=== PATIENT | female | born 1975 | race American Indian/Alaskan Native ===

== ENCOUNTER 2017-11-22 00:49 | Emergency (ER) | payer OTHER ==
[2017-11-22] MEDS ORDERED: NACL 0.9% 1000 ML 1,000 ML IV ONE ×3 (00:57→05:18)
[2017-11-22 01:45] LABS: Basophils % (Auto) 0.4 % (0.0-1.8); Eosinophils % (Auto) 0.2 % (0.0-4.3); Hematocrit 39.4 % (30.3-42.9); Hemoglobin 13.2 gm/dl (10.1-14.3); Lymphocytes # (Auto) 1.4 K/mm3 (1.2-5.4); Lymphocytes % (Auto) 13.1 % (13.4-35.0); Mean Corpuscular HGB Conc 33 % (30-34); Mean Corpuscular Volume 77 fl (79-97); Monocytes # (Auto) 0.7 K/mm3 (0.0-0.8); Monocytes % (Auto) 6.4 % (0.0-7.3); Platelet Count 344 K/mm3 (140-440); Red Blood Count 5.11 M/mm3 (3.65-5.03); Red Cell Distribution Width 15.5 % (13.2-15.2)
[2017-11-22 01:54] LABS: Alanine Aminotransferase 8 units/L (7-56); Albumin 4.4 g/dL (3.9-5); BUN/Creatinine Ratio 10; Blood Urea Nitrogen 11 mg/dL (7-17); Calcium 10.9 mg/dL (8.4-10.2); Hemolysis Index 0
[2017-11-22 01:58] LABS: Mean Corpuscular Hemoglobin 26 pg (28-32)
--- NOTE | 2017-11-22 03:42 | Emergency Department Report ---
ED Female HPI - General Chief complaint: Abdominal Pain Stated complaint: ABD PAIN Time Seen by Provider: 11/22/17 03:05 Source: patient, family Mode of arrival: Ambulatory Limitations: No Limitations - History of Present Illness Initial comments: 41-year-old -French female comes in for right side pain that radiate towards the middle. Patient reports that the pain has starting to ease up. She admits to vomiting 2 she had nausea but has resolved. She admits to dysuria and pressure in her bladder area. She also admits to frequency urgency but denies any fever chills. Patient reports no past medical history currently takes no medications on a daily basis and has no known drug allergies. MD Complaint: dysuria, pelvic pain Location: RLQ Radiation: suprapubic Severity scale (0 -10): 10 Quality: other (pressure) Consistency: intermittent Worsens with: urination Are you Now?: No Last Menstrual Period: 11/21/17 EDC: 08/28/18 Associated Symptoms: nausea/vomiting, dysuria. denies: fever/chills - Related Data Sexually active: Yes Previous Rx's Medication Instructions Recorded Last Taken Type Nitrofurantoin Monohyd/M-Cryst 100 mg PO Q12H #20 capsule 11/22/17 Unknown Rx [Macrobid 100 mg Capsule] traMADol [Ultram 50 MG tab] 50 mg PO Q6HR PRN #12 tablet 11/22/17 Unknown Rx Allergies Allergy/AdvReac Type Severity Reaction Status Date / Time No Known Allergies Allergy Unverified 11/22/17 00:52 ED Review of Systems ROS: Stated complaint: ABD PAIN Other details as noted in HPI Constitutional: denies: chills, fever Eyes: denies: eye pain, eye discharge, vision change ENT: denies: ear pain, throat pain Respiratory: denies: cough, shortness of breath, wheezing Cardiovascular: denies: chest pain, palpitations Gastrointestinal: nausea (resolved), vomiting (times 1) Genitourinary: urgency, dysuria, frequency Musculoskeletal: denies: back pain, joint swelling, arthralgia Skin: denies: rash, lesions Neurological: denies: headache, weakness, paresthesias Psychiatric: denies: anxiety, depression ED Past Medical Hx - Past Medical History Previous Medical History?: No - Surgical History Past Surgical History?: No - Social History Smoking Status: Never Smoker Substance Use Type: None - Medications Home Medications: Home Medications Medication Instructions Recorded Confirmed Last Taken Type Nitrofurantoin Monohyd/M-Cryst 100 mg PO Q12H #20 capsule 11/22/17 Unknown Rx [Macrobid 100 mg Capsule] traMADol [Ultram 50 MG tab] 50 mg PO Q6HR PRN #12 tablet 11/22/17 Unknown Rx ED Physical Exam - General Limitations: No Limitations General appearance: alert, in no apparent distress - Head Head exam: Present: atraumatic, normocephalic - Eye Eye exam: Present: EOMI - Respiratory Respiratory exam: Present: normal lung sounds bilaterally. Absent: respiratory distress - Cardiovascular Cardiovascular Exam: Present: regular rate, normal rhythm. Absent: systolic murmur, diastolic murmur, rubs, gallop - GI/Abdominal GI/Abdominal exam: Present: soft, tenderness (right lower quadrant TTP), normal bowel sounds. Absent: guarding, rebound, rigid - Extremities Exam Extremities exam: Present: full ROM. Absent: pedal edema - Back Exam Back exam: Present: normal inspection - Neurological Exam Neurological exam: Present: alert, oriented X3 - Psychiatric Psychiatric exam: Present: normal affect, normal mood - Skin Skin exam: Present: warm, dry, intact, normal color. Absent: rash ED Course Vital Signs 11/22/17 11/22/17 00:54 05:23 Temperature 98.7 F Pulse Rate 79 Respiratory 16 18 Rate Blood Pressure 127/60 O2 Sat by Pulse 97 Oximetry ED Medical Decision Making - Lab Data Result diagrams: 11/22/17 01:02 11/22/17 01:02 - Radiology Data Radiology results: report reviewed FINDINGS: Visualized lower thorax: No significant abnormality. Liver: Normal size and attenuation. Spleen: Normal size and attenuation. Gallbladder and biliary system: There is cholelithiasis.. Pancreas: Normal. Adrenals: Normal. Kidneys: There is a 3 millimeter stone in the urinary bladder which appears a recently passed from the right ureter. There is mild residual right hydronephrosis and hydroureter. There are tiny bilateral kidney stones and cysts.. GI tract: There is no bowel obstruction, colitis or enteritis. The appendix is normal.. Lymph nodes and mesentery: Normal. Vasculature: Normal. Bladder: 3 millimeter stone in the urinary bladder. Reproductive organs: Uterus and ovaries are unremarkable.. Peritoneum: There is no ascites or free air, abscess or adenopathy.. Musculoskeletal structures: No significant abnormality. Other: None. IMPRESSION: There is cholelithiasis.. There is a 3 millimeter stone in the urinary bladder which appears a recently passed from the right ureter. There is mild residual right hydronephrosis and hydroureter. There are tiny bilateral kidney stones and cysts.. There is no bowel obstruction, colitis or enteritis. The appendix is normal.. Uterus and ovaries are unremarkable.. There is no ascites or free air, abscess or adenopathy.. Transcribed By: CO Dictated By: SHARON CORONA MD Electronically Authenticated By: SHARON CORONA MD Signed Date/Time: 11/22/17447 DD/ 7 TD/TT: 11/22/17447 - Medical Decision Making Patient has been evaluated by this provider in fast track. CBC CMP here test urinalysis pending. CT order with contrast for abdominal pelvic. Discussed case and reviewed CT scan and labs with Dr. Flores . Normal saline 2 L ordered and Toradol 15 mg IV. Critical care attestation.: If time is entered above; I have spent that time in minutes in the direct care of this critically ill patient, excluding procedure time. ED Disposition Clinical Impression: Kidney stone on right side Cholelithiasis Qualifiers: Cholelithiasis location: gallbladder Cholecystitis presence: without cholecystitis Biliary obstruction: without biliary obstruction Qualified Code(s) : K80.20 - Calculus of gallbladder without cholecystitis without obstruction Disposition: TO HOME OR SELFCARE Is pt being admited?: No Does the pt Need Aspirin: No Condition: Stable Instructions: Abdominal Pain (ED) Additional Instructions: Please complete antibiotics as prescribed. Please take pain medication as needed. Importantly to follow up with the urologist I have listed one below for your convenience. Prescriptions: Nitrofurantoin Monohyd/M-Cryst [Macrobid 100 mg Capsule] 100 mg PO Q12H #20 capsule traMADol [Ultram 50 MG tab] 50 mg PO Q6HR PRN #12 tablet PRN Reason: Pain Referrals: PRIMARY CARE, [Primary Care Provider] - 3-5 Days KIMBERLY CALLE MD [Staff Physician] - 3-5 Days TORO MUELLER MD [Referring] - 3-5 Days Forms: Work/School Release Form(ED), Accompanied Note
[2017-11-22 04:05] LABS: Amorphous Crystals,Urine 1+; Bacteria,Urine 4+ /HPF (Negative); Bilirubin,Urine NEG (Negative); Blood,Urine LG (Negative); Color,Urine Yellow (Yellow); Hyaline Casts,Urine 1 /LPF; Mucus,Urine FEW /HPF; Protein,Urine <15 mg/dL mg/dL (Negative); Urobilinogen,Urine < 2.0 mg/dL (<2.0)
--- NOTE | 2017-11-22 04:50 | Cat Scan Report ---
FINAL REPORT PROCEDURE: CT ABDOMEN PELVIS W CON TECHNIQUE: Computerized axial tomography of the abdomen and pelvis was performed after the IV injection of iodinated nonionic contrast. HISTORY: right lower quadrant pain that radiates to the mid COMPARISON: No prior studies are available for comparison. FINDINGS: Visualized lower thorax: No significant abnormality. Liver: Normal size and attenuation. Spleen: Normal size and attenuation. Gallbladder and biliary system: There is cholelithiasis.. Pancreas: Normal. Adrenals: Normal. Kidneys: There is a 3 millimeter stone in the urinary bladder which appears a recently passed from the right ureter. There is mild residual right hydronephrosis and hydroureter. There are tiny bilateral kidney stones and cysts.. GI tract: There is no bowel obstruction, colitis or enteritis. The appendix is normal.. Lymph nodes and mesentery: Normal. Vasculature: Normal. Bladder: 3 millimeter stone in the urinary bladder. Reproductive organs: Uterus and ovaries are unremarkable.. Peritoneum: There is no ascites or free air, abscess or adenopathy.. Musculoskeletal structures: No significant abnormality. Other: None. IMPRESSION: There is cholelithiasis.. There is a 3 millimeter stone in the urinary bladder which appears a recently passed from the right ureter. There is mild residual right hydronephrosis and hydroureter. There are tiny bilateral kidney stones and cysts.. There is no bowel obstruction, colitis or enteritis. The appendix is normal.. Uterus and ovaries are unremarkable.. There is no ascites or free air, abscess or adenopathy..
[2017-11-22] MEDS ORDERED: TORADOL IV ONE (05:19)
[2017-11-22 08:38] VITALS: BP 116/63
== END 2017-11-22 08:09 | disposition home or self-care (01) ==
LOC: ED 00:49
DX: K80.20 Calculus of gallbladder without cholecystitis without obstruction (principal); N20.0 Calculus of kidney
CPT/HCPCS: 36415; 74177; 80053; 81001; 84703; 85025; 96361; 96374; 99284; J1885; J7030; Q9967